=== PATIENT | male | born 1955 | race Caucasian/White ===

== ENCOUNTER 2018-03-04 02:54 | Emergency (ER) | payer BC, OTHER ==
[~2018-03-04] VITALS: Ht 167.6 cm; Wt 86.9 kg
[~2018-03-04 02:54] MED LIST: ALBUTEROL17 GM IH; ALPRAZOLAM1 MG PO; AMANTADINE100 MG PO; CARBIDOPA-LEVO1 EA15 PO; CARBIDOPA-LEVO1 EA17 PO; Colace PO; ENDOCET 5-3251 EACH PO; FLEXERIL5 M1 PO; FLOMAX0.4 M1 PO; FLOMAX0.4 MG PO; FLONASE16 GM NS; GABAPENTIN600 MG PO; HYDROCHLOROTH12.5 M3 PO; HYDROCODON-ACE1 EAC9 PO; LISINOPRIL-HCT1 EAC3 PO; METHYLPREDNISOLONE PO; MS CONTIN,ORAMO15 M1 PO; NEURONTIN600 MG PO; NEXIUM40 MG PO; NORCO 5/3251 TABLET PO; PREDNISONE20 MG PO; PROBIOTIC1 EAC1 PO; REQUIP XL8 MG PO; ROPINIROLE HCL12 MG PO; SERTRALINE HCL100 MG PO; STALEVO PO; TRAMADOL HCL50 MG PO; VENTOLIN HFA18 GM IH; VICODIN HP 10-1 EACH PO; ZESTRIL,PRINIVI20 MG PO; ZOCOR10 M1 PO; ZOCOR10 MG PO; ZOFRAN4 MG PO; ZOLOFT100 MG PO
[2018-03-04] MEDS ORDERED: FLEXERIL10 MG PO (06:37)
[2018-03-04 07:23] VITALS: BP 123/61
== END 2018-03-04 07:23 | disposition home or self-care (01) ==
LOC: EME 02:54
DX: S09.90XA Unspecified injury of head, initial encounter (principal); S16.1XXA Strain of muscle, fascia and tendon at neck level, initial encounter; S20.212A Contusion of left front wall of thorax, initial encounter; W01.0XXA Fall on same level from slipping, tripping and stumbling without subsequent striking against object, initial encounter; K21.9 Gastro-esophageal reflux disease without esophagitis; J45.909 Unspecified asthma, uncomplicated; I10 Essential (primary) hypertension; F41.9 Anxiety disorder, unspecified; G20 Parkinson's disease; Z87.891 Personal history of nicotine dependence
CPT/HCPCS: 70450; 71046; 71250; 72125; 99281; 99283